=== PATIENT | female | born 1990 | race Caucasian/White ===

== ENCOUNTER 2016-10-12 22:54 | Emergency (ER) | payer MEDICAID ==
[2016-10-12 23:24] LABS: URINE APPEARANCE CLEAR; URINE BILIRUBIN NEGATIVE (NEGATIVE); URINE BLOOD LARGE (NEGATIVE); URINE COLOR ORANGE; URINE GLUCOSE (UA) NEGATIVE (NEGATIVE); URINE KETONE NEGATIVE (NEGATIVE); URINE LEUKOCYTE ESTERASE MODERATE (NEGATIVE); URINE NITRITE POSITIVE (NEGATIVE)
--- NOTE | 2016-10-12 23:25 | Emergency Department Record ---
History of Present Illness - General Chief complaint: Flank Pain Stated complaint: RIGHT FLANK PAIN Time Seen by Provider: 10/12/16 23:07 Source: Patient Mode of Arrival: Ambulatory Limitations: No limitations - History of Present Illness Initial comments: The patient is here for flank pain for one day. She was recently at [facility] a week ago and was diagnosed with a UTI and given Cipro. The patient states she did not finish it and now feels like her flank pain is worsening. She denies any dysuria but is having urinary pressure. There is no reported fever, chills, nausea, vomiting, or diarrhea. The patient has no hx of kidney stones. MD Complaint: Dysuria, Other (Flank pain.) Onset/Timin -: Days(s) Radiation: R flank Severity: Severe Severity scale (1-10): 9 Quality: Stabbing Consistency: Constant, Getting worse Improves with: None Worsens with: None Patient : No Associated Symptoms: Dysuria - Related Data Sexually active: No Home Medications Medication Instructions Recorded Confirmed Last Taken Ciprofloxacin HCl [Cipro] 250 mg PO DAILY 10/12/16 10/12/16 Unknown Phenazopyridine HCl 200 mg PO Q8H PRN 10/12/16 10/12/16 10/12/16 [Phenazopyridine HCl] Previous Rx's Medication Instructions Recorded Ciprofloxacin HCl [Cipro] 500 mg PO Q12HR #14 tablet 10/13/16 Naproxen [Naprosyn] 250 mg PO BID #14 tablet 10/13/16 Allergies Allergy/AdvReac Type Severity Reaction Status Date / Time Latex, Natural Rubber AdvReac RASH Verified 05/29/15 09:45 medroxyprogesterone acetate AdvReac ANEMIA Verified 05/29/15 09:45 [From Depo-Provera] Travel Screening - Travel/Exposure Within Last 30 Days Have you traveled within the last 30 days?: No Review of Systems Constitutional: Denies: Chills, Fever Eyes: Denies: Eye discharge ENT: Denies: Congestion Respiratory: Denies: Cough, Dyspnea Past Medical History - SOCIAL HISTORY Smoking Status: Never smoker Alcohol Use: None Drug Use: None - RESPIRATORY Hx Respiratory Disorders: No - CARDIOVASCULAR Hx Cardio Disorders: Yes Comment:: murmur - NEURO Hx Neuro Disorders: No - GI Hx GI Disorders: No - Hx Genitourinary Disorders: No - ENDOCRINE Hx Endocrine Disorders: No - MUSCULOSKELETAL Hx Musculoskeletal Disorders: No Comment:: hip displagia - PSYCH Hx Psych Problems: Yes Hx Anxiety: Yes Hx Depression: Yes Comment:: ADHD - HEMATOLOGY/ONCOLOGY Hx Hematology/Oncology Disorders: Yes Hx Anemia: Yes Family Medical History Any Significant Family History?: Yes Hx Anxiety: Mother, Brother/Sister Hx Cancer: Grandparents Hx Diabetes: Mother, Brother/Sister, Grandparents Hx Heart Disease: Grandparents Hx HTN: Grandparents Hx Resp Disorders: Brother/Sister Hx Seizures: Grandparents Physical Exam - General General Appearance: Alert, Cooperative, No acute distress - Head Head exam: Atraumatic, Normocephalic, Normal inspection - Eye Eye exam: Normal appearance, PERRL - Neck Neck exam: Normal inspection, Full ROM. negative: Tenderness - Respiratory Respiratory exam: Normal lung sounds bilaterally. negative: Respiratory distress - Cardiovascular Cardiovascular Exam: Regular rate, Normal rhythm, Normal heart sounds - GI/Abdominal GI/Abdominal exam: Soft, Normal bowel sounds. negative: Distended, Rebound, Rigid, Tenderness - Back Back exam: Reports: Normal inspection, Paraspinal tenderness (The pain is 100% reproducible with palpation of the R upper lumbar paraspinal area.). Denies: Muscle spasm, Vertebral tenderness - Neurological Neurological exam: Alert, Normal gait. negative: Abnormal gait, Motor sensory deficit Course Vital Signs 10/12/16 23:12 Temperature 98.1 F Pulse Rate [ 74 Pulse Ox Probe] Respiratory 16 Rate Blood Pressure 106/73 [Left Arm] Pulse Ox 98 - Reevaluation(s) Reevaluation #1: The patient is doing very well at this time. She denies any nausea, vomiting, or abdominal pain. She states her R flank pain is much improved. I did discuss the lab and CT results with the patient. She clearly has a urinary tract infection and possibly even a mild pyelonephritis. I do believe the patient is able to go home on oral Abx's due to the fact she has no fever, vomiting, or dehydration and her pain is controlled. We will discharge the patient on Cipro 500 BID and have her F/U with her PCP early next week. 10/13/16 00:12 10/13/16 00:21 Reevaluation #2: The patient urine culture was reviewed from last week at [facility]. She did have E Coli in her urine and it was sensitive to Rocephin and Cipro. 10/13/16 00:18 Medical Decision Making - Data Complexity MDM Data: Labs Ordered and/or Reviewed, X-Ray Ordered and/or Reviewed - Lab Data Result diagrams: 10/12/16 23:30 10/12/16 23:30 - Radiology Data Radiology results: Report reviewed (CT: Neg for stones or hydro.) Disposition Disposition: Discharge Clinical Impression: Pyelonephritis Disposition: Home, Self-Care Condition: (1) Good Instructions: Kidney Infection (ED) Additional Instructions: Please drink plenty of fluids and continue the Cipro tomorrow and use Naprosyn for pain. Please see your PCP for recheck early next week. Return to the ER for any increasing pain, fever, vomiting or dehydration. Prescriptions: Ciprofloxacin HCl [Cipro] 500 mg PO Q12HR #14 tablet Naproxen [Naprosyn] 250 mg PO BID #14 tablet Forms: Patient Portal Access Time of Disposition: 00:16 Quality - Quality Measures Quality Measures: N/A - Blood Pressure Screening View Details: Yes Does Patient Have Any of the Following: No Blood Pressure Classification: Normal BP Reading Systolic Measurement: 112 Diastolic Measurement: 68 Screening for High Blood Pressure: < Normal BP, F/U Not Required > [G8783] Pre-Hypertensive Follow-up Interventions: Referral to alternative/primary care provider.
[2016-10-12 23:30] LABS: HCG,QUALITATIVE URINE NEGATIVE (NEGATIVE); URINE BACTERIA 2+; URINE MUCUS MODERATE; URINE WBC >50 (0-2/hpf)
[2016-10-12 23:36] LABS: BASO % 0.4 % (0-6); EOS % 2.2 % (0-6); GRAN % 72.3 % (47-80); HEMATOCRIT 31.9 % (35.0-47.0); HEMOGLOBIN 10.7 gm/dl (11.6-16.0); LYMPH % 20.4 % (16-45); MEAN CELL VOLUME 90.1 fl (81-97); MEAN CORPUSCULAR HEMOGLOBIN 30.2 pg (27-33); MEAN CORPUSCULAR HGB CONC 33.5 g/dl (32-36); MEAN PLATELET VOLUME 10.9 fl (7.4-10.4); MONO % 4.7 % (0-9); PLATELET COUNT 340 K/uL (130-400); RED BLOOD COUNT 3.54 M/uL (3.80-5.40); RED CELL DISTRIBUTION WIDTH 12.4 % (11.5-14.5); WHITE BLOOD COUNT W/O DIFF 13.6 K/uL (4.2-12.2)
[2016-10-12] MEDS: CEFTRIAXONE SODIUM 1 GM in 0.9 % SODIUM CHLORIDE 100ML 100 ML IVPB ONE (23:41)
[2016-10-12] MEDS: KETOROLAC 30 MG/ML VIAL IVP ONE (23:41)
[2016-10-12] MEDS: 0.9 % SODIUM CHLORIDE 1,000 ML BAG IV ONE (23:41)
[2016-10-12 23:48] LABS: ANION GAP 8.9 (7-16); BLOOD UREA NITROGEN 10 mg/dL (7-17); CARBON DIOXIDE 25.1 mmol/L (22-30); CREATININE 0.7 mg/dL (0.52-1.04); EST GLOMERULAR FILTRATION RATE > 60 ml/min; GLUCOSE,RANDOM 97 mg/dL (70-110)
[2016-10-13] MEDS: CIPROFLOXACIN HCL 500 MG TABLET PO ONE (00:24)
--- NOTE | 2016-10-15 07:41 | CT SCAN REPORT ---
EXAM: CT OF THE ABDOMEN AND PELVIS WITHOUT CONTRAST HISTORY: RIGHT SIDED FLANK PAIN. TECHNIQUE: CT of the abdomen and pelvis was performed without oral or IV contrast. This limits evaluation of bowel and solid visceral organs. Comparison: Prior CT from 05/29/15. FINDINGS: Limited evaluation of the lung bases is unremarkable. The osseous structures are grossly intact. Limited evaluation of the liver, spleen, adrenal glands, pancreas, and kidneys is unremarkable. Negative for urinary tract calculus or hydronephrosis. The gallbladder is present. No gross evidence for bowel obstruction. Normal appendix. Large amount of stool in the colon. Subjective urinary bladder wall thickening may relate to incomplete distention. No free air or free fluid. IMPRESSION: 1. ABUNDANT STOOL IN THE COLON. NORMAL APPENDIX. NEGATIVE FOR URINARY TRACT CALCULUS. 2. SUBJECTIVE URINARY BLADDER WALL THICKENING MAY IN PART RELATE TO INCOMPLETE DISTENTION. NONSPECIFIC CYSTITIS NOT EXCLUDED. JOB NUMBER: [id number] MTDD
== END 2016-10-13 00:28 | disposition home or self-care (01) ==
LOC: ER 22:54
DX: N10 Acute pyelonephritis (principal); R30.0 Dysuria
CPT/HCPCS: 99284 ×2; 96374; 96375; 85025; 80048; 81001; 81025; 74176; J1885; J7030

== ENCOUNTER 2016-12-02 03:27 | Emergency (ER) | payer MEDICAID ==
[2016-12-02] MEDS ORDERED: IBUPROFEN 600 MG TABLET PO ONE (03:42)
--- NOTE | 2016-12-02 03:48 | Emergency Department Record ---
History of Present Illness - General Chief Complaint: Headache Migraine Stated Complaint: HEADACHE Time Seen by Provider: 12/02/16 03:34 Source: Patient Mode of Arrival: Ambulatory Limitations: No limitations - History of Present Illness Initial Comments: 26 yo female presents to ED with a CC of right sided neck pain that began 2 hours ago while at work. Patient denies injury to the neck, denies numbness, tingling, or extremity weakness. Patient also reports that she did not take anything for her pain symptoms before coming to the ED for evaluation. Patient denies health problems other than chiari-malformation. MD Complaint: Other (neck pain) Onset/Timin -: Hour(s) Onset Description: Gradual Location: Right Severity: Moderate Severity scale (1-10): 6 Consistency: Constant Improves With: Nothing Worsens With: Movement of head/neck Associated Symptoms: Other Other Symptoms: Other Treatments Prior to Arrival: None - Related Data Previous Rx's Medication Instructions Recorded Ciprofloxacin HCl [Cipro] 500 mg PO Q12HR #14 tablet 10/13/16 Naproxen [Naprosyn] 250 mg PO BID #14 tablet 10/13/16 Allergies Allergy/AdvReac Type Severity Reaction Status Date / Time Sulfa (Sulfonamide Allergy HIVES Verified 12/02/16 03:37 Antibiotics) Latex, Natural Rubber AdvReac RASH Verified 05/29/15 09:45 medroxyprogesterone acetate AdvReac ANEMIA Verified 05/29/15 09:45 [From Depo-Provera] control AdvReac don't work Uncoded 12/02/16 03:38 Travel Screening - Travel/Exposure Within Last 30 Days Have you traveled within the last 30 days?: No - Travel/Exposure Within Last Year Have you traveled outside the [place] in the last year?: No - Additonal Travel Details Have you been exposed to anyone with a communicable illness?: No - Travel Symptoms Symptom Screening: None Review of Systems Constitutional: Denies: Chills, Fever, Malaise, Night sweats Eyes: Denies: Eye discharge, Eye pain ENT: Denies: Congestion, Ear pain, Epistaxis Respiratory: Denies: Cough, Dyspnea Cardiovascular: Denies: Chest pain, Dyspnea on exertion Endocrine: Denies: Fatigue, Heat or cold intolerance Gastrointestinal: Denies: Abdominal pain, Nausea, Vomiting Genitourinary: Denies: Incontinence, Retention Musculoskeletal: Reports: Neck pain. Denies: Arthralgia, Back pain, Gout, Joint swelling Skin: Denies: Bruising, Change in color Neurological: Reports: Headache. Denies: Abnormal gait, Confusion, Seizure Psychiatric: Denies: Anxiety Hematological/Lymphatic: Denies: Anemia, Blood Clots Past Medical History - SOCIAL HISTORY Smoking Status: Never smoker Alcohol Use: Occasional Drug Use: None - RESPIRATORY Hx Respiratory Disorders: No - CARDIOVASCULAR Hx Cardio Disorders: Yes Comment:: murmur - NEURO Hx Neuro Disorders: No - GI Hx GI Disorders: No - Hx Genitourinary Disorders: No - ENDOCRINE Hx Endocrine Disorders: No - MUSCULOSKELETAL Hx Musculoskeletal Disorders: No Comment:: hip displagia - PSYCH Hx Psych Problems: Yes Hx Anxiety: Yes Hx Depression: Yes Comment:: ADHD - HEMATOLOGY/ONCOLOGY Hx Hematology/Oncology Disorders: Yes Hx Anemia: Yes Family Medical History Any Significant Family History?: Yes Hx Anxiety: Mother, Brother/Sister Hx Cancer: Grandparents Hx Diabetes: Mother, Brother/Sister, Grandparents Hx Heart Disease: Grandparents Hx HTN: Grandparents Hx Resp Disorders: Brother/Sister Hx Seizures: Grandparents Physical Exam - General General Appearance: Alert, Oriented x3, Cooperative, No acute distress Limitations: No limitations - Head Head exam: Atraumatic, Normocephalic, Normal inspection Head exam detail: negative: Abrasion, Contusion, Ty's sign, General tenderness, Hematoma, Laceration - Eye Eye exam: Normal appearance. negative: Conjunctival injection, Periorbital swelling, Periorbital tenderness, Scleral icterus - ENT Ear exam: negative: Auricular hematoma, Auricular trauma Nasal Exam: negative: Active bleeding, Discharge, Dried blood, Foreign body Mouth exam: negative: Drooling, Laceration, Muffled voice, Tongue elevation - Neck Neck exam: Full ROM, Tenderness (MIld TTP along the right paracervical muslces, FROM without stiffness or spasm noted on examination.). negative: Meningismus - Respiratory Respiratory exam: Normal lung sounds bilaterally. negative: Rales, Respiratory distress, Rhonchi, Stridor - Cardiovascular Cardiovascular Exam: Regular rate, Normal rhythm, Normal heart sounds - GI/Abdominal GI/Abdominal exam: Soft. negative: Rebound, Rigid, Tenderness - Rectal Rectal exam: Deferred - exam: Deferred - Extremities Extremities exam: Normal inspection. negative: Calf tenderness, Pedal edema, Tenderness - Back Back exam: Denies: CVA tenderness (R), CVA tenderness (L) - Neurological Neurological exam: Alert, Normal gait, Oriented X3 - Psychiatric Psychiatric exam: Normal affect, Normal mood - Skin Skin exam: Normal color. negative: Abrasion Type of lesion: negative: abrasion Course Vital Signs 12/02/16 03:33 Temperature 98.2 F Pulse Rate [ 82 Pulse Ox Probe] Respiratory 16 Rate Blood Pressure 115/73 [Left Arm] Pulse Ox 100 - Reevaluation(s) Reevaluation #1: 12/02/16 03:46 Patient denies injury, fever, or neck stiffness symptoms. Patient has FROM on examination, and no meningeal signs. Will treat with Ibuprofen for her neck pain symptoms, and the patient appears stable for discharge at this time. VA: right left Disposition Disposition: Discharge Clinical Impression: Cervical muscle strain Qualifiers: Encounter type: initial encounter Qualified Code(s): S16.1XXA - Strain of muscle, fascia and tendon at neck level, initial encounter Disposition: Home, Self-Care Condition: (2) Stable Instructions: Cervical Strain (ED) Additional Instructions: Return to ED if your symptoms worsen or if you have any concerns. Ibuprofen as directed. Follow-up with your family doctor in 3-5 days as directed. Forms: Patient Portal Access Time of Disposition: 03:49 Quality - Quality Measures Quality Measures: N/A - Blood Pressure Screening Does Patient Have Any of the Following: No Blood Pressure Classification: Normal BP Reading Systolic Measurement: 115 Diastolic Measurement: 73 Screening for High Blood Pressure: < Normal BP, F/U Not Required > [G8783]
== END 2016-12-02 03:57 | disposition home or self-care (01) ==
LOC: ER 03:27
DX: S16.1XXA Strain of muscle, fascia and tendon at neck level, initial encounter (principal); X58.XXXA Exposure to other specified factors, initial encounter; Y92.63 Factory as the place of occurrence of the external cause; Y99.0 Civilian activity done for income or pay
CPT/HCPCS: 99282

== ENCOUNTER 2017-11-28 20:13 | Emergency (ER) | payer MEDICAID ==
--- NOTE | 2017-11-28 20:35 | Emergency Department Record ---
History of Present Illness - General Chief complaint: Pain Stated complaint: INJURY TO RT WRIST Time Seen by Provider: 11/28/17 20:29 Source: Patient Mode of Arrival: Ambulatory Limitations: No limitations - History of Present Illness Initial comments: 27 yo female presents to ED for evaluation of right wrist pain that occurred after playing volleyball 2 days ago. Patient reports pain with movement and bruising of the wrist and forearm. Patient denies other injury on examination, and denies pain with movement of the elbow/shoulder. MD Complaint: Extremity pain Onset/Timin -: Days(s) Location: Right, Arm, Hand Severity scale (1-10): 6 Quality: Burning Consistency: Constant Improves with: Nothing Worsens with: Exertion - Related Data Home Medications Medication Instructions Recorded Confirmed Last Taken Otc Mood Stabilizer 1 tab PO DAILY 11/28/17 Unknown Allergies Allergy/AdvReac Type Severity Reaction Status Date / Time Sulfa (Sulfonamide Allergy HIVES Verified 12/02/16 03:37 Antibiotics) Latex, Natural Rubber AdvReac RASH Verified 05/29/15 09:45 medroxyprogesterone acetate AdvReac ANEMIA Verified 05/29/15 09:45 [From Depo-Provera] control AdvReac don't work Uncoded 12/02/16 03:38 Travel Screening - Travel/Exposure Within Last 30 Days Have you traveled within the last 30 days?: No - Travel Symptoms Symptom Screening: None Review of Systems Constitutional: Denies: Chills, Fever, Malaise, Night sweats Eyes: Denies: Eye discharge, Eye pain ENT: Denies: Congestion, Ear pain Respiratory: Denies: Cough, Dyspnea Cardiovascular: Denies: Chest pain, Dyspnea on exertion Endocrine: Denies: Fatigue, Heat or cold intolerance Gastrointestinal: Denies: Abdominal pain, Nausea, Vomiting Genitourinary: Denies: Incontinence, Retention Musculoskeletal: Reports: Myalgia. Denies: Arthralgia, Back pain Skin: Reports: Bruising. Denies: Change in color Neurological: Denies: Abnormal gait, Confusion, Headache, Seizure Psychiatric: Denies: Anxiety Hematological/Lymphatic: Denies: Anemia, Blood Clots Past Medical History - SOCIAL HISTORY Smoking Status: Never smoker - RESPIRATORY Hx Respiratory Disorders: No - CARDIOVASCULAR Hx Cardio Disorders: Yes Comment:: murmur - NEURO Hx Neuro Disorders: No Comment:: chiari malformation - GI Hx GI Disorders: No - Hx Genitourinary Disorders: No - ENDOCRINE Hx Endocrine Disorders: No - MUSCULOSKELETAL Hx Musculoskeletal Disorders: No Comment:: hip displagia - PSYCH Hx Psych Problems: Yes Hx Anxiety: Yes Hx Depression: Yes Comment:: ADHD - HEMATOLOGY/ONCOLOGY Hx Hematology/Oncology Disorders: Yes Hx Anemia: Yes Family Medical History Any Significant Family History?: Yes Hx Anxiety: Mother, Brother/Sister Hx Cancer: Grandparents Hx Diabetes: Mother, Brother/Sister, Grandparents Hx Heart Disease: Grandparents Hx HTN: Grandparents Hx Resp Disorders: Brother/Sister Hx Seizures: Grandparents Physical Exam - General General Appearance: Alert, Oriented x3, Cooperative, Mild distress Limitations: No limitations - Head Head exam: Atraumatic, Normocephalic, Normal inspection Head exam detail: negative: Abrasion, Contusion, Ty's sign, General tenderness, Hematoma, Laceration - Eye Eye exam: Normal appearance. negative: Conjunctival injection, Periorbital swelling, Periorbital tenderness, Scleral icterus - ENT Ear exam: negative: Auricular hematoma, Auricular trauma Nasal Exam: negative: Active bleeding, Discharge, Dried blood, Foreign body Mouth exam: negative: Drooling, Laceration, Tongue elevation - Neck Neck exam: Normal inspection. negative: Meningismus, Tenderness - Respiratory Respiratory exam: Normal lung sounds bilaterally. negative: Rales, Respiratory distress, Rhonchi, Stridor - Cardiovascular Cardiovascular Exam: Regular rate, Normal rhythm, Normal heart sounds Peripheral Pulses: 3+: Radial (R) - GI/Abdominal GI/Abdominal exam: Soft. negative: Rebound, Rigid, Tenderness - Rectal Rectal exam: Deferred - exam: Deferred - Extremities Extremities exam: Tenderness, Other (TTP to the volar aspect of the right wrist , mild ecchymosis present. Strong distal radial pulse, compartments of the forearm are soft on examination. FROM of the elbow, shoulder, fingers, and hand (though painful).). negative: Calf tenderness, Pedal edema - Back Back exam: Denies: CVA tenderness (R), CVA tenderness (L) - Neurological Neurological exam: Alert, Normal gait, Oriented X3 - Psychiatric Psychiatric exam: Normal affect, Normal mood - Skin Skin exam: Normal color. negative: Abrasion Type of lesion: negative: abrasion Course Vital Signs 11/28/17 20:20 Temperature 97.9 F Pulse Rate [ 76 Pulse Ox Probe] Respiratory 20 Rate Blood Pressure 119/84 [Left Arm] Pulse Ox 97 - Reevaluation(s) Reevaluation #1: 11/28/17 21:19 Right wrist: Possible distal ulna subluxation Patient was updated on all results, patient denies pain at the elbow. Case was then discussed with Dr. Calderon, will place in wrist splint with instructions to follow-up with Dr. Calderon in the [facility] Specialty clinic. Disposition Disposition: Discharge Clinical Impression: Subluxation of distal end of ulna Qualifiers: Encounter type: initial encounter Laterality: right Qualified Code(s): S63.071A - Subluxation of distal end of right ulna, initial encounter Disposition: Home, Self-Care Condition: (2) Stable Instructions: Contusion in Adults (ED) Additional Instructions: Return to ED if your symptoms worsen or if you have any concerns. Ice, Ibuprofen as directed. Follow-up with Dr. Calderon in the [facility] Spec[facility] next week. Referrals: GIORGIO CALDERON [DOCTOR OF OSTEOPATH] - [facility] Specialty Clinics [Provider Group] Forms: Patient Portal Access Time of Disposition: 20:34 Quality - Quality Measures Quality Measures: N/A - Blood Pressure Screening Does Patient Have Any of the Following: No Blood Pressure Classification: Pre-Hypertensive BP Reading Systolic Measurement: 119 Diastolic Measurement: 84 Screening for High Blood Pressure: < Pre-Hypertensive BP, F/U Documented > [ G8950] Pre-Hypertensive Follow-up Interventions: Referral to alternative/primary care provider.
--- NOTE | 2017-11-29 12:27 | RADIOLOGY REPORT ---
EXAM: RIGHT WRIST HISTORY: RIGHT WRIST INJURY. TECHNIQUE: AP, oblique, lateral and navicular views of the right wrist were obtained. Comparison: None. FINDINGS: There appears to be widening of the distal radial ulnar joints. No other bone or joint abnormality is identified. IMPRESSION: WIDENING OF THE DISTAL RADIAL ULNAR JOINT SUGGESTING SUBLUXATION. THIS COULD BE FURTHER ASSESSED WITH RADIOGRAPHS OF THE BILATERAL WRISTS TO ASSESS FOR SYMMETRY. ADDENDUM: Comparison is made to outside hospital right wrist radiographs from [facility]. The widening of the distal radial ulnar joint is symmetric bilaterally. The differential includes normal variation versus injury in both of the distal radial ulnar joints. JOB NUMBER: [id number] AND [id number] [facility]
== END 2017-11-28 21:29 | disposition home or self-care (01) ==
LOC: ER 20:13
DX: S63.071A Subluxation of distal end of right ulna, initial encounter (principal); W21.06XA Struck by volleyball, initial encounter; Y93.68 Activity, volleyball (beach) (court)
CPT/HCPCS: 99283

== ENCOUNTER 2017-12-03 14:45 | Emergency (ER) | payer MEDICAID ==
--- NOTE | 2017-12-03 15:42 | Emergency Department Record ---
History of Present Illness - General Chief complaint: Extremity Problem Stated complaint: RT HAND AND HAND NUMBNESS Time Seen by Provider: 12/03/17 15:10 Source: Patient Mode of Arrival: Ambulatory Limitations: No limitations - History of Present Illness Initial comments: pt injured both her wrists playing volleyball. she went to [facility] for the left and was told she had an ulnar styloid fx. she then came here for the right and was told she had a possible subluxation. she was given no f/u at [facility] and was told to f/u w dr edwards for her r hand. dr edwards said there is nothing to be done. pt now c/o numbnes around the lateral area of her r wrist and thumb Onset/Timin -: Days(s) Location: Right, Hand History of Same: No Improves with: Nothing Worsens with: Nothing Associated Symptoms: Denies other symptoms - Related Data Allergies Allergy/AdvReac Type Severity Reaction Status Date / Time Sulfa (Sulfonamide Allergy HIVES Verified 12/03/17 14:57 Antibiotics) Latex, Natural Rubber AdvReac RASH Verified 12/03/17 14:57 medroxyprogesterone acetate AdvReac ANEMIA Verified 12/03/17 14:57 [From Depo-Provera] control AdvReac don't work Uncoded 12/02/16 03:38 Travel Screening - Travel/Exposure Within Last 30 Days Have you traveled within the last 30 days?: No Past Medical History - SOCIAL HISTORY Smoking Status: Never smoker Alcohol Use: None Drug Use: None - RESPIRATORY Hx Respiratory Disorders: No - CARDIOVASCULAR Hx Cardio Disorders: Yes Comment:: murmur - NEURO Hx Neuro Disorders: No Comment:: chiari malformation - GI Hx GI Disorders: No - Hx Genitourinary Disorders: No - ENDOCRINE Hx Endocrine Disorders: No - MUSCULOSKELETAL Hx Musculoskeletal Disorders: No Comment:: hip displagia - PSYCH Hx Psych Problems: Yes Hx Anxiety: Yes Hx Depression: Yes Comment:: ADHD - HEMATOLOGY/ONCOLOGY Hx Hematology/Oncology Disorders: Yes Hx Anemia: Yes Family Medical History Any Significant Family History?: Yes Hx Anxiety: Mother, Brother/Sister Hx Cancer: Grandparents Hx Diabetes: Mother, Brother/Sister, Grandparents Hx Heart Disease: Grandparents Hx HTN: Grandparents Hx Resp Disorders: Brother/Sister Hx Seizures: Grandparents Course Vital Signs 12/03/17 14:54 Temperature 97.8 F Pulse Rate 80 Respiratory 20 Rate Blood Pressure 103/76 Pulse Ox 100 - Reevaluation(s) Reevaluation #1: 12/03/17 17:52 case d/w dr edwards. ct done and is neg. dr edwards said have pt f/u with family doctor. Disposition Disposition: Discharge Clinical Impression: Numbness of right hand Contusion of wrist, right Qualifiers: Encounter type: initial encounter Qualified Code(s): S60.211A - Contusion of right wrist, initial encounter Disposition: Home, Self-Care Condition: (1) Good Instructions: Contusion in Adults (ED), Wrist Injury (ED) Additional Instructions: follow up with family doctor. return sooner if worse. wear splint when needed. motrin for pain with food Forms: Patient Portal Access, Return to Work/School Quality - Quality Measures Quality Measures: N/A - Blood Pressure Screening Does Patient Have Any of the Following: No Blood Pressure Classification: Normal BP Reading Systolic Measurement: 103 Diastolic Measurement: 76 Screening for High Blood Pressure: < Normal BP, F/U Not Required > [G8783]
--- NOTE | 2017-12-05 10:34 | CT SCAN REPORT ---
EXAM: EMERGENCY CT OF THE RIGHT WRIST WITHOUT CONTRAST WITH POST PROCESSING HISTORY: INJURY, POSSIBLE RIGHT WRIST FRACTURE, NUMBNESS IN THUMB. INJURY ONE WEEK AGO. TECHNIQUE: Axial CT scan of the right wrist was performed without IV contrast. Post processing on an independent workstation was performed with 3D volume rendered as well as multiplanar 2D reformatted series obtained. Comparison: Plain film series dated 11/28/17. No prior CT of the wrist. Encounter: Subsequent. FINDINGS: No definite fracture or dislocation of the wrist identified. Compared with MRI, CT is not particularly sensitive for evaluation of the soft tissues and if the patient's symptoms persist, follow-up MRI of the wrist may be useful for further evaluation. IMPRESSION: NO DEFINITE FRACTURE OR DISLOCATION OF THE RIGHT WRIST IDENTIFIED. JOB NUMBER: [id number] MTDD
== END 2017-12-03 18:01 | disposition home or self-care (01) ==
LOC: ER 14:45
DX: S60.211A Contusion of right wrist, initial encounter (principal); R20.0 Anesthesia of skin; X58.XXXA Exposure to other specified factors, initial encounter; Y93.68 Activity, volleyball (beach) (court)
CPT/HCPCS: 99283

== ENCOUNTER 2018-02-13 14:13 | Emergency (ER) | payer MEDICAID ==
[2018-02-13] MEDS ORDERED: ONDANSETRON HCL IV 4 MG/2 ML VIAL IV ONE (14:37)
[2018-02-13] MEDS ORDERED: MAGNESIUM HYDROXIDE/AL HYDROX 30 ML, LIDOCAINE VISC 2% 15ML 15 ML PO ONE ×2 (14:37)
[2018-02-13] MEDS ORDERED: 0.9 % SODIUM CHLORIDE 1,000 ML BAG IV ONE (14:37)
--- NOTE | 2018-02-13 14:52 | Emergency Department Record ---
History of Present Illness - General Chief Complaint: Abdominal Pain Stated Complaint: ABD PAIN,NAUSEA AND BACK PAIN Time Seen by Provider: 02/13/18 14:30 Source: Patient Mode of Arrival: Ambulatory Limitations: No limitations - History of Present Illness Initial Comments: The patient is here due to a 2-3 day hx of upper AP. The pain is sharp and stabbing and mainly in the RUQ. It intermittently radiates to the back. She has had nausea, vomiting, and diarrhea with it. Eating and drinking does seem to make the symptoms worse. She has been evaluated at [facility] yesterday for it and was told she had an inflamed intestine. Since leaving the ER there her symptoms have not improved. She has no hx of any abdominal surgeries other than a BTL. The patient denies any lower AP, vaginal discharge, bleeding or dysuria. MD Complaint: Abdominal pain Onset/Timin -: Days(s) Location: RUQ Improves With: Nothing Worsens With: Nothing Associated Symptoms: Diarrhea, Fever - Related Data LMP (females 10-50): Current Home Medications Medication Instructions Recorded Confirmed Last Taken Dicyclomine HCl [Bentyl] 10 mg PO Q8H 02/13/18 02/13/18 02/13/18 Ondansetron [Zofran Odt] 4 mg PO Q8H 02/13/18 02/13/18 02/13/18 Previous Rx's Medication Instructions Recorded Sucralfate [Carafate] 1 gm PO QID #28 tablet 02/13/18 Allergies Allergy/AdvReac Type Severity Reaction Status Date / Time Sulfa (Sulfonamide Allergy HIVES Verified 02/13/18 14:26 Antibiotics) Latex, Natural Rubber AdvReac RASH Verified 02/13/18 14:26 medroxyprogesterone acetate AdvReac ANEMIA Verified 02/13/18 14:26 [From Depo-Provera] control AdvReac don't work Uncoded 12/02/16 03:38 Travel Screening - Travel/Exposure Within Last 30 Days Have you traveled within the last 30 days?: No Review of Systems Constitutional: Denies: Chills, Fever Eyes: Denies: Eye discharge ENT: Denies: Congestion Respiratory: Denies: Cough, Dyspnea Past Medical History - SOCIAL HISTORY Smoking Status: Never smoker Alcohol Use: None Drug Use: None - RESPIRATORY Hx Respiratory Disorders: No - CARDIOVASCULAR Hx Cardio Disorders: Yes Comment:: murmur - NEURO Hx Neuro Disorders: No Comment:: chiari malformation - GI Hx GI Disorders: No - Hx Genitourinary Disorders: No - ENDOCRINE Hx Endocrine Disorders: No - MUSCULOSKELETAL Hx Musculoskeletal Disorders: No Comment:: hip displagia - PSYCH Hx Psych Problems: Yes Hx Anxiety: Yes Hx Depression: Yes Comment:: ADHD - HEMATOLOGY/ONCOLOGY Hx Hematology/Oncology Disorders: Yes Hx Anemia: Yes Family Medical History Any Significant Family History?: Yes Hx Anxiety: Mother, Brother/Sister Hx Cancer: Grandparents Hx Diabetes: Mother, Brother/Sister, Grandparents Hx Heart Disease: Grandparents Hx HTN: Grandparents Hx Resp Disorders: Brother/Sister Hx Seizures: Grandparents Physical Exam - General General Appearance: Alert, Oriented x3, Cooperative, No acute distress - Head Head exam: Atraumatic, Normocephalic, Normal inspection - Eye Eye exam: Normal appearance, PERRL - ENT Throat exam: Normal inspection. negative: Tonsillar erythema, Tonsillar exudate - Neck Neck exam: Normal inspection, Full ROM. negative: Tenderness - Respiratory Respiratory exam: Normal lung sounds bilaterally. negative: Respiratory distress - Cardiovascular Cardiovascular Exam: Regular rate, Normal rhythm, Normal heart sounds - GI/Abdominal GI/Abdominal exam: Soft, Tenderness (There is diffuse very mild epigastric and RUQ tenderness to palpation.). negative: Distended, Rebound, Rigid - Extremities Extremities exam: Normal inspection, Full ROM, Normal capillary refill. negative: Tenderness - Neurological Neurological exam: Alert. negative: Motor sensory deficit Course Vital Signs 02/13/18 14:22 Temperature 98.3 F Pulse Rate 85 Respiratory 20 Rate Blood Pressure 104/82 Pulse Ox 97 - Reevaluation(s) Reevaluation #1: I did review the patient's CT from yesterday and it did not demonstrate any acute abnormalities. The patient is feeling better at this time. 02/13/18 15:30 Reevaluation #2: The patient is doing better at this time. Her pain has resolved and she is resting comfortably. I did discuss the neg US with her and the need for F/U. 02/13/18 16:51 Medical Decision Making - Data Complexity MDM Data: Labs Ordered and/or Reviewed, X-Ray Ordered and/or Reviewed - Lab Data Result diagrams: 02/13/18 14:50 02/13/18 14:50 - Radiology Data Radiology results: Report reviewed (US: Neg for acute GB pathology. ) Disposition Disposition: Discharge Clinical Impression: Abdominal pain Qualifiers: Abdominal location: right upper quadrant Qualified Code(s): R10.11 - Right upper quadrant pain Disposition: Home, Self-Care Condition: (2) Stable Instructions: Abdominal Pain (ED) Additional Instructions: Please eat a very bland diet and only use Tylenol for pain. (No Motrin or Advil) . Please take the Carafate as directed and see your family doctor next week for recheck. Please also see Dr. Su in the Specialist clinic for possible further evaluation of your GB. Return to the ER for any worsening pain, or any fever, vomiting, or diarrhea. Prescriptions: Sucralfate [Carafate] 1 gm PO QID #28 tablet Referrals: [facility] [Provider Group] Forms: Patient Portal Access Time of Disposition: 16:55 Quality - Quality Measures Quality Measures: N/A - Blood Pressure Screening View Details: Yes Does Patient Have Any of the Following: No Blood Pressure Classification: Pre-Hypertensive BP Reading Systolic Measurement: 104 Diastolic Measurement: 82 Screening for High Blood Pressure: < Pre-Hypertensive BP, F/U Documented > [ G8950] Pre-Hypertensive Follow-up Interventions: Referral to alternative/primary care provider.
[2018-02-13 15:07] LABS: BASO % 0.6 % (0-6); EOS % 3.6 % (0-6); GRAN % 62.9 % (47-80); HEMATOCRIT 36.5 % (35.0-47.0); HEMOGLOBIN 11.8 gm/dl (11.6-16.0); LYMPH % 28.7 % (16-45); MEAN CELL VOLUME 92.4 fl (81-97); MEAN CORPUSCULAR HEMOGLOBIN 29.9 pg (27-33); MEAN CORPUSCULAR HGB CONC 32.3 g/dl (32-36); MEAN PLATELET VOLUME 10.9 fl (7.4-10.4); MONO % 4.2 % (0-9); PLATELET COUNT 322 K/uL (130-400); RED BLOOD COUNT 3.95 M/uL (3.80-5.40); RED CELL DISTRIBUTION WIDTH 13.3 % (11.5-14.5); WHITE BLOOD COUNT W/O DIFF 6.5 K/uL (4.2-12.2)
[2018-02-13 15:10] LABS: URINE APPEARANCE CLEAR; URINE BILIRUBIN NEGATIVE (NEGATIVE); URINE BLOOD SMALL (NEGATIVE); URINE COLOR YELLOW; URINE GLUCOSE (UA) NEGATIVE (NEGATIVE); URINE KETONE NEGATIVE (NEGATIVE); URINE LEUKOCYTE ESTERASE NEGATIVE (NEGATIVE); URINE NITRITE NEGATIVE (NEGATIVE); URINE PROTEIN NEGATIVE (NEGATIVE); URINE UROBILINOGEN 0.2 E.U./dL (0.20 - 1.00)
[2018-02-13 15:18] LABS: URINE EPITHELIAL CELLS 0 - 2 (FEW); URINE RBC 0 - 2 (NONE SEEN); URINE WBC NONE SEEN (0-2/hpf)
[2018-02-13 15:18] LABS: BLOOD UREA NITROGEN 6 mg/dL (6-20)
[2018-02-13 15:19] LABS: CREATININE 0.6 mg/dL (0.5-0.9); EST GLOMERULAR FILTRATION RATE > 60 mL/min; TOTAL PROTEIN 7.3 g/dL (6.6-8.7)
[2018-02-13 15:21] LABS: GLUCOSE,RANDOM 114 mg/dL (74-109)
[2018-02-13 15:24] LABS: ALBUMIN 4.1 g/dL (4.0-5.0); ALKALINE PHOSPHATASE 59 U/L (35-104); ALT/SGPT 31 U/L (<33); AST/SGOT 22 U/L (10.0-35.0); LIPASE 27 U/L (13-60)
[2018-02-13 15:27] LABS: BILIRUBIN,DIRECT < 0.2 mg/dL (0-0.3)
[2018-02-13] MEDS ORDERED: SUCRALFATE 1 G/10 ML UD PO ONE (16:10)
--- NOTE | 2018-02-14 08:59 | ULTRASOUND REPORT ---
DATE: 02/13/2018. EXAM: COMPLETE ABDOMINAL ULTRASOUND. HISTORY: RIGHT UPPER QUADRANT ABDOMINAL PAIN FOR ONE WEEK WITH NAUSEA, VOMITING , AND DIARRHEA. PROVIDED HISTORY REPORT IS A NEGATIVE CT EXAMINATION PERFORMED AT OUTSIDE HOSPITAL YESTERDAY. TECHNIQUE: Complete abdominal ultrasound. COMPARISON: CT of the abdomen and pelvis dated 10/12/2016. FINDINGS: The visualized portions of the pancreatic head and body appear within normal limits. The pancreatic tail is obscured by shadowing bowel gas. The visualized hepatic parenchyma appears within normal limits. Borderline diffuse gallbladder wall thickening measuring between 2.0 and 3.0 mm in thickness. The visualized gallbladder contents appear anechoic. No gallstones or pericholecystic fluid visualized. White [employer] Pan Tank Operator reports significant patient tenderness while examining the gallbladder. The common bile duct measures 3.0 mm which is within normal limits. The spleen appears unremarkable. The right kidney measures 10.8 cm in length. No hydronephrosis, shadowing calculus, or focal mass detected. The left kidney measures 9.2 cm in length. No hydronephrosis, shadowing calculus, or focal mass detected. The visualized portions of the abdominal aorta appear unremarkable. Unremarkable Grayscale appearance of the inferior vena cava at the level of the liver. No visible ascites. IMPRESSION: 1. NONSPECIFIC BORDERLINE GALLBLADDER WALL THICKENING. TECHNOLOGIST ALSO NOTES A POSITIVE SONOGRAPHIC RODRIGUEZ'S SIGN WHILE EXAMINING THE REGION OF THE GALLBLADDER. HOWEVER, NO GALLSTONES OR PERICHOLECYSTIC FLUID IS SEEN. IF THERE IS CONTINUED CONCERN FOR ACUTE CHOLECYSTITIS, FOLLOW-UP IMAGING WITH HEPATOBILIARY SCINTIGRAPHY MAY BE OF BENEFIT. 2. AN OTHERWISE UNREMARKABLE ABDOMINAL ULTRASOUND. JOB NUMBER: [id number] [facility]
== END 2018-02-13 17:06 | disposition home or self-care (01) ==
LOC: ER 14:13
DX: R10.11 Right upper quadrant pain (principal); R19.7 Diarrhea, unspecified; R11.2 Nausea with vomiting, unspecified
CPT/HCPCS: 99284 ×2; 96374; 96361; 83690; 85025; 80076; 80048; 81001; 84703; 76700; J2405; J7030

== ENCOUNTER 2018-02-24 07:25 | Day surgery (SDC) | payer MEDICAID ==
[~2018-02-24 07:25] MED LIST: ACETAMINOPHEN 1,000 MG/100 ML BTL IV ONE; FAMOTIDINE 20MG TABLET PO ONE; MECLIZINE 25 MG TABLET PO ONE; METOCLOPRAMIDE 10 MG TABLET PO ONE
[2018-02-24] MEDS ORDERED: FENTANYL PF 100MCG/2ML VIAL IV ONE ×2 (07:26)
[2018-02-24] MEDS ORDERED: ONDANSETRON HCL IV 4 MG/2 ML VIAL IVP ONE (07:26)
[2018-02-24] MEDS ORDERED: BUPIVACAINE 0.25% W/EPI MPF 30ML VIAL IVP ONE (07:26)
[2018-02-24] MEDS ORDERED: NALOXONE 0.4 MG/1 ML VIAL IV ONE (07:26)
[2018-02-24] MEDS ORDERED: SUCCINYLCHOLINE 20 MG/ML 10ML IVP ONE (07:26)
[2018-02-24] MEDS ORDERED: SUGAMMADEX SODIUM 200 MG/2 ML VIAL IV ONE (07:26)
[2018-02-24] MEDS ORDERED: DEXAMETHASONE 4 MG/ML 1ML VIAL IVP ONE (07:26)
[2018-02-24] MEDS ORDERED: PROPOFOL 10 MG/ML VIAL IV ONE (07:26)
[2018-02-24] MEDS ORDERED: HYDROCODONE/APAP 5/325MG TABLET PO ONE (07:26)
[2018-02-24] MEDS ORDERED: LIDOCAINE 2% MDV (20MG/ML) 20ML VIAL IV ONE (07:26)
[2018-02-24] MEDS ORDERED: ROCURONIUM BROMIDE 50MG/5ML VIAL IV ONE (07:26)
[2018-02-24] MEDS ORDERED: MIDAZOLAM HCL 2MG/2ML VIAL IV ONE (07:26)
[2018-02-24] MEDS ORDERED: SEVOFLURANE 250 ML INH ONE (07:26)
--- NOTE | 2018-02-25 11:10 | Operative Note ---
DATE OF SURGERY: 02/24/2018 Surgeon: Aman Su DO PREOPERATIVE DIAGNOSIS: Chronic cholecystitis. POSTOPERATIVE DIAGNOSIS: Chronic cholecystitis. OPERATION: Laparoscopic cholecystectomy. Indication: The patient is a 27-year-old female who is having ongoing right subcostal postprandial pain. She was seen in the clinic. Her history was consistent with chronic cholecystitis. We did discuss cholecystectomy versus medical management. She desired surgical intervention. Risks include but are not limited to bleeding, infection, ductal injury, possible conversion to open, postoperative bile leak. She understood this fully. PROCEDURE: Thereafter, consent was signed and questions answered. She was taken to the operating room and placed in a supine position. General anesthesia was administered per the department of anesthesia. The patient's abdomen was prepped and draped in the usual sterile fashion. The infraumbilical region was anesthetized with a total of 5 mL of 0.25% Sensorcaine with epinephrine. A 2 cm infraumbilical incision was made. This was carried down to the anterior rectus fascia. This was incised. Lucas clamps were placed on the fascial edges and brought up into the wound. Stay sutures of 0 Vicryl were placed. Posterior rectus sheath was identified and incised. The peritoneal cavity was entered bluntly. At this time, a 10 mm blunt Callie port was placed. Adequate pneumoperitoneum was established. Under direct visualization, additional 5 mm epigastric and two 5 mm right subcostal ports were placed. The patient was rotated into steep reverse Trendelenburg with rotation to left. The gallbladder was identified in the subhepatic space. It was retracted in a cephalad and lateral direction opening up the angle of Calot. The hepatocystic triangle was thoroughly dissected out. There was no aberrant anatomy, no posterior ductal structures. The cystic duct and cystic artery were clearly identified. The distal half of the gallbladder had been released from the liver as well. Each one was doubly clipped and cut in a standard fashion. Gallbladder was then taken off the liver bed with Charles harmonic. This was extracted through the umbilical port. Right upper quadrant was rechecked and found to be hemostatic. No bleeding. No bile leak. No bowel injury noted. The patient was leveled out. The pneumoperitoneum was released. All ports were removed. The fascia was closed with 0 Vicryl in a [id number] fashion. The skin at all ports was closed with 4-0 Vicryl. The patient was taken to the recovery room in satisfactory condition. FINDINGS AT THE TIME OF SURGERY: Chronic cholecystitis. CC: [facility]
== END 2018-02-24 11:37 | disposition home or self-care (01) ==
LOC: SUR 07:25
PROVIDERS: ATTEND Surgery
DX: K81.1 Chronic cholecystitis (principal); R01.1 Cardiac murmur, unspecified
CPT/HCPCS: 47562; 00790; J2405; J3010; J3490; J0330; J2310

== ENCOUNTER 2018-04-23 14:40 | Emergency (ER) | payer MEDICAID ==
--- NOTE | 2018-04-23 15:12 | Emergency Department Record ---
History of Present Illness - General Chief complaint: ENT Stated complaint: SORE THROAT,FEVER Time Seen by Provider: 04/23/18 14:59 Source: Patient, RN notes reviewed Mode of Arrival: Ambulatory - History of Present Illness Initial comments: sore throat and a fever and body aches complaint: Sore throat Onset/Timin -: Days(s) Location: Throat Severity: Moderate Severity scale (1-10): 7 Associated Symptoms: Sore throat - Related Data Previous Rx's Medication Instructions Recorded Oseltamivir Phosphate [Tamiflu] 75 mg PO BID #10 capsule 04/23/18 Allergies Allergy/AdvReac Type Severity Reaction Status Date / Time Sulfa (Sulfonamide Allergy HIVES Verified 04/23/18 14:51 Antibiotics) Latex, Natural Rubber AdvReac RASH Verified 04/23/18 14:51 medroxyprogesterone acetate AdvReac ANEMIA Verified 04/23/18 14:51 [From Depo-Provera] control AdvReac don't work Uncoded 12/02/16 03:38 Travel Screening - Travel/Exposure Within Last 30 Days Have you traveled within the last 30 days?: No - Travel/Exposure Within Last Year Have you traveled outside the [place] in the last year?: No - Additonal Travel Details Have you been exposed to anyone with a communicable illness?: No - Travel Symptoms Symptom Screening: None Review of Systems Reviewed: No additional complaints except as noted below Constitutional: Reports: As per HPI. Denies: Chills, Fever, Malaise, Night sweats, Weakness, Weight change Eyes: Reports: As per HPI. Denies: Eye discharge, Eye pain, Photophobia, Vision change ENT: Reports: As per HPI. Denies: Congestion, Dental pain, Ear pain, Epistaxis , Hearing loss, Throat pain Respiratory: Reports: As per HPI. Denies: Cough, Dyspnea, Hemoptysis, Stridor, Wheezes Cardiovascular: Reports: As per HPI. Denies: Arrhythmia, Chest pain, Dyspnea on exertion, Edema, Murmurs, Orthopnea, Palpitations, Paroxysmal nocturnal dyspnea, Rheumatic Fever, Syncope Endocrine: Reports: As per HPI. Denies: Fatigue, Heat or cold intolerance, Polydipsia, Polyuria Gastrointestinal: Reports: As per HPI. Denies: Abdominal pain, Constipation, Diarrhea, Hematemesis, Hematochezia, Melena, Nausea, Vomiting Genitourinary: Reports: As per HPI. Denies: Abnormal menses, Discharge, Dyspareunia, Dysuria, Frequency, Hematuria, Incontinence, Retention, Urgency Musculoskeletal: Reports: As per HPI. Denies: Arthralgia, Back pain, Gout, Joint swelling, Myalgia, Neck pain Skin: Reports: As per HPI. Denies: Bruising, Change in color, Change in hair/ nails, Lesions, Pruritus, Rash Neurological: Reports: As per HPI. Denies: Abnormal gait, Confusion, Headache, Numbness, Paresthesias, Seizure, Tingling, Tremors, Vertigo, Weakness Psychiatric: Reports: As per HPI. Denies: Anxiety, Auditory hallucinations, Depression, Homicidal thoughts, Suicidal thoughts, Visual hallucinations Hematological/Lymphatic: Reports: As per HPI. Denies: Anemia, Blood Clots, Easy bleeding, Easy bruising, Swollen glands Past Medical History - SOCIAL HISTORY Smoking Status: Never smoker Alcohol Use: Rare Drug Use: None - RESPIRATORY Hx Respiratory Disorders: No - CARDIOVASCULAR Hx Cardio Disorders: Yes Comment:: murmur - NEURO Hx Neuro Disorders: No Comment:: chiari malformation - GI Hx GI Disorders: No - Hx Genitourinary Disorders: No - ENDOCRINE Hx Endocrine Disorders: No - MUSCULOSKELETAL Hx Musculoskeletal Disorders: No Comment:: hip displagia - PSYCH Hx Psych Problems: Yes Hx Anxiety: Yes - HEMATOLOGY/ONCOLOGY Hx Hematology/Oncology Disorders: Yes Hx Anemia: Yes Family Medical History Any Significant Family History?: Yes Hx Anxiety: Mother, Brother/Sister Hx Cancer: Grandparents Hx Diabetes: Mother, Brother/Sister, Grandparents Hx Heart Disease: Grandparents Hx HTN: Grandparents Hx Resp Disorders: Brother/Sister Hx Seizures: Grandparents Physical Exam - General General Appearance: Alert ([id number]), Oriented x3, Cooperative, No acute distress - Head Head exam: Normal inspection - Eye Eye exam: Normal appearance, PERRL Pupils: Normal accommodation - ENT ENT exam: Normal exam, Mucous membranes moist, Normal external ear exam, Normal orophraynx, TM's normal bilaterally Ear exam: Normal external inspection. negative: External canal tenderness Nasal Exam: Normal inspection. negative: Discharge, Sinus tenderness Mouth exam: Normal external inspection, Tongue normal Teeth exam: Normal inspection. negative: Dental caries Throat exam: Normal inspection. negative: Tonsillar erythema, Tonsillar exudate - Neck Neck exam: Normal inspection, Full ROM. negative: Tenderness - Respiratory Respiratory exam: Normal lung sounds bilaterally. negative: Respiratory distress - Cardiovascular Cardiovascular Exam: Regular rate, Normal rhythm, Normal heart sounds - GI/Abdominal GI/Abdominal exam: Soft, Normal bowel sounds. negative: Tenderness - Rectal Rectal exam: Deferred - exam: Deferred - Extremities Extremities exam: Normal inspection, Full ROM, Normal capillary refill. negative: Tenderness - Back Back exam: Reports: Normal inspection, Full ROM. Denies: Muscle spasm, Rash noted, Tenderness - Neurological Neurological exam: Alert, Normal gait, Oriented X3, Reflexes normal - Psychiatric Psychiatric exam: Normal affect, Normal mood - Skin Skin exam: Dry, Intact, Normal color, Warm Course Vital Signs 04/23/18 14:53 Temperature 101.1 F H Pulse Rate 111 H Respiratory 20 Rate Blood Pressure 107/73 Pulse Ox 99 Medical Decision Making - Data Complexity MDM Data: Labs Ordered and/or Reviewed (influenze a positive) Disposition Clinical Impression: Influenza A Disposition: Home, Self-Care Condition: (1) Good Instructions: Influenza (ED) Additional Instructions: fluids and rest Prescriptions: Oseltamivir Phosphate [Tamiflu] 75 mg PO BID #10 capsule Forms: Patient Portal Access Time of Disposition: 15:41 Quality - Quality Measures Quality Measures: N/A - Blood Pressure Screening Does Patient Have Any of the Following: No Blood Pressure Classification: Normal BP Reading Systolic Measurement: 107 Diastolic Measurement: 73 Screening for High Blood Pressure: < Normal BP, F/U Not Required > [G8783]
[2018-04-23 15:17] LABS: INFLUENZA A POSITIVE (NEGATIVE); INFLUENZA B NEGATIVE (NEGATIVE); STREP A SCREEN NEGATIVE (NEGATIVE)
[2018-04-23] MEDS ORDERED: ACETAMINOPHEN 500 MG TABLET PO ONE (15:25)
== END 2018-04-23 16:05 | disposition home or self-care (01) ==
LOC: ER 14:40
DX: J10.1 Influenza due to other identified influenza virus with other respiratory manifestations (principal)
CPT/HCPCS: 87400; 87880; 99282

== ENCOUNTER 2018-09-07 11:43 | Emergency (ER) | payer SELFPAY ==
[2018-09-07 13:08] LABS: ABSOLUTE NEUTROPHIL COUNT 3.87; BASO % 0.4 % (0-6); GRAN % 57.1 % (47-80); HEMATOCRIT 36.8 % (35.0-47.0); HEMOGLOBIN 12.1 gm/dl (11.6-16.0); LYMPH % 30.9 % (16-45); MEAN CORPUSCULAR HEMOGLOBIN 30.3 pg (27-33); MEAN CORPUSCULAR HGB CONC 32.9 g/dl (32-36); MEAN PLATELET VOLUME 11.1 fl (7.4-10.4); MONO % 6.6 % (0-9); PLATELET COUNT 272 K/uL (130-400); RED CELL DISTRIBUTION WIDTH 12.7 % (11.5-14.5); URINE APPEARANCE CLEAR; URINE BILIRUBIN NEGATIVE (NEGATIVE); URINE BLOOD MODERATE (NEGATIVE); URINE COLOR YELLOW; URINE GLUCOSE (UA) NEGATIVE (NEGATIVE); URINE KETONE NEGATIVE (NEGATIVE); URINE LEUKOCYTE ESTERASE NEGATIVE (NEGATIVE); URINE NITRITE NEGATIVE (NEGATIVE); URINE PROTEIN NEGATIVE (NEGATIVE); URINE UROBILINOGEN 0.2 E.U./dL (0.20 - 1.00); WHITE BLOOD COUNT W/O DIFF 6.8 K/uL (4.2-12.2)
[2018-09-07 13:14] LABS: URINE EPITHELIAL CELLS 0 - 2 (FEW); URINE WBC NONE SEEN (0-2/hpf)
[2018-09-07 13:15] LABS: HCG,QUALITATIVE URINE NEGATIVE (NEGATIVE)
--- NOTE | 2018-09-07 14:55 | Emergency Department Record ---
History of Present Illness - General Chief complaint: Female Urogenital Problem Stated complaint: VAGINAL BLEEDING Time Seen by Provider: 09/07/18 12:28 Source: Patient Mode of Arrival: Ambulatory Limitations: No limitations - History of Present Illness Initial comments: pt having heavy bleeding and cramping. she went through 6 tampons. it is time for her menses. Complaint: Vaginal bleeding Onset/Timin -: Days(s) Location: Suprapubic Severity: Moderate Quality: Sharp Consistency: Constant Patient : No Associated Symptoms: Vaginal bleeding - Related Data Home Medications Medication Instructions Recorded Confirmed Last Taken Buspirone HCl [Buspar] 10 mg PO DAILY 09/07/18 09/07/18 09/07/18 Allergies Allergy/AdvReac Type Severity Reaction Status Date / Time Sulfa (Sulfonamide Allergy HIVES Verified 09/07/18 11:54 Antibiotics) Latex, Natural Rubber AdvReac RASH Verified 09/07/18 11:54 medroxyprogesterone acetate AdvReac ANEMIA Verified 09/07/18 11:54 [From Depo-Provera] control AdvReac don't work Uncoded 12/02/16 03:38 Travel Screening - Travel/Exposure Within Last 30 Days Have you traveled within the last 30 days?: No - Travel/Exposure Within Last Year Have you traveled outside the [place] in the last year?: No - Additonal Travel Details Have you been exposed to anyone with a communicable illness?: No - Travel Symptoms Symptom Screening: None Review of Systems Reviewed: No additional complaints except as noted below Constitutional: Reports: As per HPI. Denies: Chills, Fever, Malaise, Night sweats, Weakness, Weight change Eyes: Reports: As per HPI. Denies: Eye discharge, Eye pain, Photophobia, Vision change ENT: Reports: As per HPI. Denies: Congestion, Dental pain, Ear pain, Epistaxis, Hearing loss, Throat pain Respiratory: Reports: As per HPI. Denies: Cough, Dyspnea, Hemoptysis, Stridor, Wheezes Cardiovascular: Reports: As per HPI. Denies: Arrhythmia, Chest pain, Dyspnea on exertion, Edema, Murmurs, Orthopnea, Palpitations, Paroxysmal nocturnal dyspnea, Rheumatic Fever, Syncope Endocrine: Reports: As per HPI. Denies: Fatigue, Heat or cold intolerance, Polydipsia, Polyuria Gastrointestinal: Reports: As per HPI. Denies: Abdominal pain, Constipation, Diarrhea, Hematemesis, Hematochezia, Melena, Nausea, Vomiting Genitourinary: Reports: As per HPI, Abnormal menses. Denies: Discharge, Dyspareunia, Dysuria, Frequency, Hematuria, Incontinence, Retention, Urgency Musculoskeletal: Reports: As per HPI. Denies: Arthralgia, Back pain, Gout, Joint swelling, Myalgia, Neck pain Skin: Reports: As per HPI. Denies: Bruising, Change in color, Change in hair/nails, Lesions, Pruritus, Rash Neurological: Reports: As per HPI. Denies: Abnormal gait, Confusion, Headache, Numbness, Paresthesias, Seizure, Tingling, Tremors, Vertigo, Weakness Psychiatric: Reports: As per HPI. Denies: Anxiety, Auditory hallucinations, Depression, Homicidal thoughts, Suicidal thoughts, Visual hallucinations Hematological/Lymphatic: Reports: As per HPI. Denies: Anemia, Blood Clots, Easy bleeding, Easy bruising, Swollen glands Past Medical History - SOCIAL HISTORY Smoking Status: Never smoker Alcohol Use: Rare Drug Use: None - RESPIRATORY Hx Respiratory Disorders: No - CARDIOVASCULAR Hx Cardio Disorders: Yes Comment:: murmur - NEURO Hx Neuro Disorders: No Comment:: chiari malformation - GI Hx GI Disorders: No - Hx Genitourinary Disorders: No - ENDOCRINE Hx Endocrine Disorders: No - MUSCULOSKELETAL Hx Musculoskeletal Disorders: No Comment:: hip displagia - PSYCH Hx Psych Problems: Yes Hx Anxiety: Yes Hx Depression: Yes - HEMATOLOGY/ONCOLOGY Hx Hematology/Oncology Disorders: Yes Hx Anemia: Yes Family Medical History Any Significant Family History?: Yes Hx Anxiety: Mother, Brother/Sister Hx Cancer: Grandparents Hx Diabetes: Mother, Brother/Sister, Grandparents Hx Heart Disease: Grandparents Hx HTN: Grandparents Hx Resp Disorders: Brother/Sister Hx Seizures: Grandparents Physical Exam - General General Appearance: Alert, Oriented x3, Cooperative, No acute distress - Head Head exam: Normal inspection - Eye Eye exam: Normal appearance, PERRL, EOMI Pupils: Normal accommodation - ENT ENT exam: Normal exam, Mucous membranes moist, Normal external ear exam, Normal orophraynx Ear exam: Normal external inspection. negative: External canal tenderness Nasal Exam: Normal inspection. negative: Discharge, Sinus tenderness Mouth exam: Normal external inspection, Tongue normal Teeth exam: Normal inspection. negative: Dental caries Throat exam: Normal inspection. negative: Tonsillar erythema, Tonsillar exudate - Neck Neck exam: Normal inspection, Full ROM. negative: Tenderness - Respiratory Respiratory exam: Normal lung sounds bilaterally. negative: Respiratory distress - Cardiovascular Cardiovascular Exam: Regular rate, Normal rhythm, Normal heart sounds - GI/Abdominal GI/Abdominal exam: Soft, Normal bowel sounds. negative: Tenderness - Rectal Rectal exam: Deferred - exam: Normal bimanual exam, Normal external exam, Normal speculum exam, Vaginal bleeding (mild) - Extremities Extremities exam: Normal inspection, Full ROM, Normal capillary refill. negative: Tenderness - Back Back exam: Reports: Normal inspection, Full ROM. Denies: Muscle spasm, Rash noted, Tenderness - Neurological Neurological exam: Alert, Normal gait, Oriented X3, Reflexes normal - Psychiatric Psychiatric exam: Normal affect, Normal mood - Skin Skin exam: Dry, Intact, Normal color, Warm Course Vital Signs 09/07/18 09/07/18 09/07/18 11:58 13:14 14:19 Temperature 97.7 F Pulse Rate 70 Pulse Rate [ 70 74 Pulse Ox Probe] Respiratory 20 18 18 Rate Blood Pressure 106/71 Blood Pressure 108/68 98/59 [Left Arm] Pulse Ox 100 98 100 Medical Decision Making - Lab Data Result diagrams: 09/07/18 13:00 Lab Results 09/07/18 09/07/18 Range/Units 13:00 13:00 WBC 6.8 (4.2-12.2) K/uL RBC 4.00 (3.80-5.40) M/uL Hgb 12.1 (11.6-16.0) gm/dl Hct 36.8 (35.0-47.0) % MCV 92.0 (81-97) fl MCH 30.3 (27-33) pg MCHC 32.9 (32-36) g/dl RDW 12.7 (11.5-14.5) % Plt Count 272 (130-400) K/uL MPV 11.1 H (7.4-10.4) fl Gran % 57.1 (47-80) % Lymphocytes % 30.9 (16-45) % Monocytes % 6.6 (0-9) % Eosinophils % 5.0 (0-6) % Basophils % 0.4 (0-6) % Absolute Neutrophils 3.87 Urine Color Yellow Urine Appearance Clear Urine pH 5.5 (5.0-8.0) Ur Specific [place] <= 1.005 (1.002-1.030) Urine Protein Negative (NEGATIVE) Urine Glucose (UA) Negative (NEGATIVE) Urine Ketones Negative (NEGATIVE) Urine Blood Moderate (NEGATIVE) Urine Nitrite Negative (NEGATIVE) Urine Bilirubin Negative (NEGATIVE) Urine Urobilinogen 0.2 (0.20 - 1.00) E.U./dL Ur Leukocyte Esterase Negative (NEGATIVE) Urine RBC 3 - 6 (NONE SEEN) Urine WBC None seen (0-2/hpf) Ur Epithelial Cells 0 - 2 (FEW) Urine HCG, Qual Negative (NEGATIVE) Disposition Disposition: Discharge Clinical Impression: Abnormal menses Heavy menstrual bleeding Qualifiers: Menorrahagia type: with regular cycle Qualified Code(s): N92.0 - Excessive and frequent menstruation with regular cycle Disposition: Home, Self-Care Condition: (1) Good Instructions: Dysfunctional Uterine Bleeding (ED) Additional Instructions: follow up with accountant controller. return sooner if worse. motrin for pain. Forms: Patient Portal Access, Return to Work/School Quality - Quality Measures Quality Measures: N/A - Blood Pressure Screening Does Patient Have Any of the Following: No Blood Pressure Classification: Normal BP Reading Systolic Measurement: 106 Diastolic Measurement: 71 Screening for High Blood Pressure: < Normal BP, F/U Not Required > [G8783]
== END 2018-09-07 15:07 | disposition home or self-care (01) ==
LOC: ER 11:43
DX: N92.0 Excessive and frequent menstruation with regular cycle (principal)
CPT/HCPCS: 81001; 81025; 85025; 99284

== ENCOUNTER 2019-03-14 18:59 | Emergency (ER) | payer MEDICAID ==
[2019-03-14] MEDS ORDERED: PREDNISONE 20 MG TAB PO ONE (19:09)
[2019-03-14] MEDS ORDERED: CLINDAMYCIN 150 MG CAP PO ONE (19:09)
--- NOTE | 2019-03-14 19:15 | Emergency Department Record ---
History of Present Illness - General Chief complaint: Rash Stated complaint: RASH Time Seen by Provider: 03/14/19 19:09 Source: Patient Mode of Arrival: Ambulatory Limitations: No limitations - History of Present Illness Initial comments: 28 yo female presents with sore throat and rash. She states she was strep positive two weeks ago. She treated with Amoxicillin. Since then she developed a itchy diffuse rash. No fever. No nausea, vomiting or diarrhea. No abdominal pain. No dysuria. She states she has had strep "26" times. No shortness of b reath. No wheezing. MD complaint: Rash, Other (Sore throat) Onset/Timin -: Week(s) Location: Generalized Consistency: Intermittent Improves with: None Worsens with: None Context: None Associated symptoms: Denies other symptoms Treatments Prior to Arrival: None - Related Data Home Medications Medication Instructions Recorded Confirmed Last Taken Bupropion HCl [Bupropion Xl] 1 tab PO DAILY 03/14/19 03/14/19 1 Day Ago ~03/13/19 Fluoxetine HCl [Prozac] 20 mg PO DAILY 03/14/19 03/14/19 1 Day Ago ~03/13/19 Previous Rx's Medication Instructions Recorded Clindamycin HCl 300 mg PO TID #21 capsule 03/14/19 Prednisone [Prednisone 20Mg] 20 mg PO BID #12 tab 03/14/19 Allergies Allergy/AdvReac Type Severity Reaction Status Date / Time Sulfa (Sulfonamide Allergy HIVES Verified 09/07/18 11:54 Antibiotics) Latex, Natural Rubber AdvReac RASH Verified 09/07/18 11:54 medroxyprogesterone acetate AdvReac ANEMIA Verified 09/07/18 11:54 [From Depo-Provera] control AdvReac don't work Uncoded 12/02/16 03:38 Travel Screening - Travel/Exposure Within Last 30 Days Have you traveled within the last 30 days?: No - Travel/Exposure Within Last Year Have you traveled outside the [place] in the last year?: No - Additonal Travel Details Have you been exposed to anyone with a communicable illness?: No - Travel Symptoms Symptom Screening: None Review of Systems Constitutional: Denies: Chills, Fever, Malaise, Weakness Eyes: Denies: Eye discharge, Eye pain, Photophobia, Vision change ENT: Reports: Congestion, Throat pain. Denies: Ear pain Respiratory: Denies: Cough, Dyspnea, Stridor, Wheezes Cardiovascular: Denies: Chest pain, Palpitations, Syncope Endocrine: Denies: Fatigue, Polydipsia, Polyuria Gastrointestinal: Denies: Abdominal pain, Diarrhea, Nausea, Vomiting Genitourinary: Denies: Dysuria, Urgency Musculoskeletal: Denies: Arthralgia, Back pain, Myalgia Skin: Denies: Bruising, Change in color, Rash Neurological: Denies: Headache Psychiatric: Denies: Anxiety Hematological/Lymphatic: Denies: Easy bleeding, Easy bruising Past Medical History - SOCIAL HISTORY Smoking Status: Never smoker Alcohol Use: None Drug Use: None - RESPIRATORY Hx Respiratory Disorders: No - CARDIOVASCULAR Hx Cardio Disorders: Yes Comment:: murmur - NEURO Hx Neuro Disorders: No Comment:: chiari malformation - GI Hx GI Disorders: No - Hx Genitourinary Disorders: No - ENDOCRINE Hx Endocrine Disorders: No - MUSCULOSKELETAL Hx Musculoskeletal Disorders: No Comment:: hip displagia - PSYCH Hx Psych Problems: Yes Hx Anxiety: Yes Hx Depression: Yes - HEMATOLOGY/ONCOLOGY Hx Hematology/Oncology Disorders: Yes Hx Anemia: Yes Family Medical History Any Significant Family History?: Yes Hx Anxiety: Mother, Brother/Sister Hx Cancer: Grandparents Hx Diabetes: Mother, Brother/Sister, Grandparents Hx Heart Disease: Grandparents Hx HTN: Grandparents Hx Resp Disorders: Brother/Sister Hx Seizures: Grandparents Physical Exam - General General Appearance: Alert, Oriented x3, Cooperative, No acute distress Limitations: No limitations - Head Head exam: Atraumatic, Normal inspection - Eye Eye exam: Normal appearance, PERRL. negative: Conjunctival injection, Scleral icterus - ENT ENT exam: Normal exam, Mucous membranes moist, Normal orophraynx, TM's normal bilaterally Ear exam: Normal external inspection Nasal Exam: Normal inspection Mouth exam: Normal external inspection Teeth exam: Normal inspection Throat exam: Tonsillar erythema, Tonsillomegaly. negative: Tonsillar exudate, R peritonsillar mass, L peritonsillar mass - Neck Neck exam: Lymphadenopathy (mild anterior cervical ). negative: Full ROM, Meningismus, Tenderness, Thyromegaly - Respiratory Respiratory exam: Normal lung sounds bilaterally. negative: Respiratory distress - Cardiovascular Cardiovascular Exam: Regular rate, Normal rhythm, Normal heart sounds - GI/Abdominal GI/Abdominal exam: Soft. negative: Tenderness - Rectal Rectal exam: Deferred - exam: Deferred - Extremities Extremities exam: negative: Normal inspection (rash) - Back Back exam: Denies: CVA tenderness (R), CVA tenderness (L) - Neurological Neurological exam: Alert, Oriented X3 - Psychiatric Psychiatric exam: Normal affect, Normal mood - Skin Skin exam: Rash Type of lesion: Rash Distribution of rash: Generalized Description of rash: Erythematous, Papular. negative: Discharge, Fluctuant, Indurated, Petechial, Purpuic, Tenderness, Urticarial, Vesicular Course Vital Signs 03/14/19 19:04 Temperature 98.0 F Pulse Rate 82 Respiratory 18 Rate Blood Pressure 107/70 Pulse Ox 99 - Reevaluation(s) Reevaluation #1: Vitals were reviewed No significant abnormalities The examination is still consistent with non complicated tonsillitis 03/14/19 19:15 Disposition Disposition: Discharge Clinical Impression: Tonsillitis, Rash Disposition: Home, Self-Care Condition: (1) Good Instructions: Acute Rash (ED), Tonsillitis (ED) Additional Instructions: Return to the ER for a recheck immediately if worse, any new concerns or questions Take the prescriptions provided as directed Follow up as scheduled with your ENT on 03/24/2019 Prescriptions: Clindamycin HCl 300 mg PO TID #21 capsule Prednisone [Prednisone 20Mg] 20 mg PO BID #12 tab Forms: Patient Portal Access Time of Disposition: 19:14 Quality - Quality Measures Quality Measures: N/A - Blood Pressure Screening Does Patient Have Any of the Following: No Blood Pressure Classification: Normal BP Reading Systolic Measurement: 107 Diastolic Measurement: 70 Screening for High Blood Pressure: < Normal BP, F/U Not Required > [G8783]
== END 2019-03-14 19:30 | disposition home or self-care (01) ==
LOC: ER 18:59
DX: J03.90 Acute tonsillitis, unspecified (principal); R21 Rash and other nonspecific skin eruption
CPT/HCPCS: 99283; J7512

== ENCOUNTER 2019-03-23 16:35 | Emergency (ER) | payer MEDICAID ==
--- NOTE | 2019-03-23 17:33 | Emergency Department Record ---
History of Present Illness - General Chief complaint: Rash Stated complaint: RASH,ARMS STOMACH BACK/TIRED Time Seen by Provider: 03/23/19 16:59 Source: Patient Mode of Arrival: Ambulatory Limitations: No limitations - History of Present Illness Initial comments: pt c/o a rash that she was seen for before and is no better. it does not itch or hurt. she recently finished a course of abx for strep throat. the rash is on her torso MD complaint: Rash Onset/Timin -: Month(s) Location: Generalized Severity: Mild Consistency: Constant Improves with: None Worsens with: None Context: Recent illness Associated symptoms: Denies other symptoms Treatments Prior to Arrival: None - Related Data Allergies Allergy/AdvReac Type Severity Reaction Status Date / Time Sulfa (Sulfonamide Allergy HIVES Verified 09/07/18 11:54 Antibiotics) Latex, Natural Rubber AdvReac RASH Verified 09/07/18 11:54 medroxyprogesterone acetate AdvReac ANEMIA Verified 09/07/18 11:54 [From Depo-Provera] control AdvReac don't work Uncoded 12/02/16 03:38 Travel Screening - Travel/Exposure Within Last 30 Days Have you traveled within the last 30 days?: No Review of Systems Reviewed: No additional complaints except as noted below Constitutional: Reports: As per HPI. Denies: Chills, Fever, Malaise, Night sweats, Weakness, Weight change Eyes: Reports: As per HPI. Denies: Eye discharge, Eye pain, Photophobia, Vision change ENT: Reports: As per HPI. Denies: Congestion, Dental pain, Ear pain, Epistaxis, Hearing loss, Throat pain Respiratory: Reports: As per HPI. Denies: Cough, Dyspnea, Hemoptysis, Stridor, Wheezes Cardiovascular: Reports: As per HPI. Denies: Arrhythmia, Chest pain, Dyspnea on exertion, Edema, Murmurs, Orthopnea, Palpitations, Paroxysmal nocturnal dyspnea, Rheumatic Fever, Syncope Endocrine: Reports: As per HPI. Denies: Fatigue, Heat or cold intolerance, Polydipsia, Polyuria Gastrointestinal: Reports: As per HPI. Denies: Abdominal pain, Constipation, Diarrhea, Hematemesis, Hematochezia, Melena, Nausea, Vomiting Genitourinary: Reports: As per HPI. Denies: Abnormal menses, Discharge, Dysp areunia, Dysuria, Frequency, Hematuria, Incontinence, Retention, Urgency Musculoskeletal: Reports: As per HPI. Denies: Arthralgia, Back pain, Gout, Joint swelling, Myalgia, Neck pain Skin: Reports: As per HPI. Denies: Bruising, Change in color, Change in hair/nails, Lesions, Pruritus, Rash Neurological: Reports: As per HPI. Denies: Abnormal gait, Confusion, Headache, Numbness, Paresthesias, Seizure, Tingling, Tremors, Vertigo, Weakness Psychiatric: Reports: As per HPI. Denies: Anxiety, Auditory hallucinations, Depression, Homicidal thoughts, Suicidal thoughts, Visual hallucinations Hematological/Lymphatic: Reports: As per HPI. Denies: Anemia, Blood Clots, Easy bleeding, Easy bruising, Swollen glands Past Medical History - SOCIAL HISTORY Smoking Status: Never smoker - RESPIRATORY Hx Respiratory Disorders: No - CARDIOVASCULAR Hx Cardio Disorders: Yes Comment:: murmur - NEURO Hx Neuro Disorders: No Comment:: chiari malformation - GI Hx GI Disorders: No - Hx Genitourinary Disorders: No - ENDOCRINE Hx Endocrine Disorders: No - MUSCULOSKELETAL Hx Musculoskeletal Disorders: No Comment:: hip displagia - PSYCH Hx Psych Problems: Yes Hx Anxiety: Yes Hx Depression: Yes - HEMATOLOGY/ONCOLOGY Hx Hematology/Oncology Disorders: Yes Hx Anemia: Yes Family Medical History Any Significant Family History?: Yes Hx Anxiety: Mother, Brother/Sister Hx Cancer: Grandparents Hx Diabetes: Mother, Brother/Sister, Grandparents Hx Heart Disease: Grandparents Hx HTN: Grandparents Hx Resp Disorders: Brother/Sister Hx Seizures: Grandparents Physical Exam - General General Appearance: Alert, Oriented x3, Cooperative, No acute distress - Head Head exam: Normal inspection - Eye Eye exam: Normal appearance, PERRL, EOMI Pupils: Normal accommodation - ENT ENT exam: Normal exam, Mucous membranes moist, Normal external ear exam, Normal orophraynx Ear exam: Normal external inspection. negative: External canal tenderness Nasal Exam: Normal inspection. negative: Discharge, Sinus tenderness Mouth exam: Normal external inspection, Tongue normal Teeth exam: Normal inspection. negative: Dental caries Throat exam: Normal inspection. negative: Tonsillar erythema, Tonsillar exudate - Neck Neck exam: Normal inspection, Full ROM. negative: Tenderness - Respiratory Respiratory exam: Normal lung sounds bilaterally. negative: Respiratory distress - Cardiovascular Cardiovascular Exam: Regular rate, Normal rhythm, Normal heart sounds - GI/Abdominal GI/Abdominal exam: Soft, Normal bowel sounds. negative: Tenderness - Rectal Rectal exam: Deferred - exam: Deferred - Extremities Extremities exam: Normal inspection, Full ROM, Normal capillary refill. negative: Tenderness - Back Back exam: Reports: Normal inspection, Full ROM. Denies: Muscle spasm, Rash noted, Tenderness - Neurological Neurological exam: Alert, CN II-XII intact, Normal gait, Oriented X3 - Psychiatric Psychiatric exam: Normal affect, Normal mood - Skin Skin exam: Dry, Intact, Normal color, Rash, Warm Type of lesion: Rash Distribution of rash: Abdomen, Back, Chest Description of rash: Other (umbilicated) Course Vital Signs 03/23/19 16:46 Temperature 98.5 F Pulse Rate 94 H Respiratory 18 Rate Blood Pressure 104/71 Pulse Ox 97 Disposition Disposition: Discharge Clinical Impression: Molluscum contagiosum Disposition: Home, Self-Care Condition: (1) Good Instructions: Molluscum Contagiosum (ED) Additional Instructions: follow up with family doctor and community services coordinator. return sooner if worse Quality - Quality Measures Quality Measures: N/A - Blood Pressure Screening Does Patient Have Any of the Following: No Blood Pressure Classification: Normal BP Reading Systolic Measurement: 104 Diastolic Measurement: 71 Screening for High Blood Pressure: < Normal BP, F/U Not Required > [G8783]
== END 2019-03-23 18:58 | disposition home or self-care (01) ==
LOC: ER 16:35
DX: B08.1 Molluscum contagiosum (principal)
CPT/HCPCS: 99282

== ENCOUNTER 2019-03-26 09:54 | Emergency (ER) | payer MEDICAID ==
[2019-03-26 10:48] LABS: INFLUENZA A NEGATIVE (NEGATIVE); INFLUENZA B NEGATIVE (NEGATIVE)
--- NOTE | 2019-03-26 11:04 | Emergency Department Record ---
History of Present Illness - General Chief Complaint: Cough Stated Complaint: COUGH Time Seen by Provider: 03/26/19 09:58 Source: Patient Mode of Arrival: Ambulatory Limitations: No limitations - History of Present Illness Initial Comments: The patient is here due to a one day hx of cough, fever, nasal congestion and body aches. She has been recently exposed to Influenza and she states she did get a flu shot this year. MD Complaint: Cough, Fever, Nasal congestion, Sore throat Onset/Timin -: Days(s) - Related Data Previous Rx's Medication Instructions Recorded Oseltamivir Phosphate [Tamiflu] 75 mg PO BID #10 capsule 03/26/19 Allergies Allergy/AdvReac Type Severity Reaction Status Date / Time Sulfa (Sulfonamide Allergy HIVES Verified 09/07/18 11:54 Antibiotics) Latex, Natural Rubber AdvReac RASH Verified 09/07/18 11:54 medroxyprogesterone acetate AdvReac ANEMIA Verified 09/07/18 11:54 [From Depo-Provera] control AdvReac don't work Uncoded 12/02/16 03:38 Travel Screening - Travel/Exposure Within Last 30 Days Have you traveled within the last 30 days?: No - Travel/Exposure Within Last Year Have you traveled outside the [place] in the last year?: No - Additonal Travel Details Have you been exposed to anyone with a communicable illness?: No - Travel Symptoms Symptom Screening: None Review of Systems Constitutional: Reports: Chills, Fever, Malaise Eyes: Denies: Eye discharge ENT: Reports: Congestion Respiratory: Reports: Cough. Denies: Dyspnea Past Medical History - SOCIAL HISTORY Smoking Status: Never smoker Alcohol Use: Rare Drug Use: None - RESPIRATORY Hx Respiratory Disorders: No - CARDIOVASCULAR Hx Cardio Disorders: Yes Comment:: murmur - NEURO Hx Neuro Disorders: No Comment:: chiari malformation - GI Hx GI Disorders: No - Hx Genitourinary Disorders: No - ENDOCRINE Hx Endocrine Disorders: No - MUSCULOSKELETAL Hx Musculoskeletal Disorders: No Comment:: hip displagia - PSYCH Hx Psych Problems: Yes Hx Anxiety: Yes Hx Depression: Yes - HEMATOLOGY/ONCOLOGY Hx Hematology/Oncology Disorders: Yes Hx Anemia: Yes Family Medical History Any Significant Family History?: No Hx Anxiety: Mother, Brother/Sister Hx Cancer: Grandparents Hx Diabetes: Mother, Brother/Sister, Grandparents Hx Heart Disease: Grandparents Hx HTN: Grandparents Hx Resp Disorders: Brother/Sister Hx Seizures: Grandparents Physical Exam - General General Appearance: Alert, Oriented x3, Cooperative, No acute distress - Head Head exam: Atraumatic, Normocephalic, Normal inspection - Eye Eye exam: Normal appearance, PERRL, EOMI - ENT Throat exam: Tonsillar erythema (mild. ). negative: Normal inspection, Tonsillomegaly, Tonsillar exudate - Neck Neck exam: Normal inspection, Full ROM. negative: Tenderness - Respiratory Respiratory exam: Normal lung sounds bilaterally. negative: Respiratory distress, Rhonchi, Stridor, Wheezes - Cardiovascular Cardiovascular Exam: Regular rate, Normal rhythm, Normal heart sounds - GI/Abdominal GI/Abdominal exam: Soft, Normal bowel sounds. negative: Tenderness - Extremities Extremities exam: Normal inspection, Full ROM, Normal capillary refill. negative: Tenderness Course Vital Signs 03/26/19 10:12 Temperature 99.7 F H Pulse Rate 114 H Respiratory 18 Rate Blood Pressure 108/72 Pulse Ox 97 - Reevaluation(s) Reevaluation #1: I did discuss the neg Flu swab with the patient but due to her son having it I strongly believe she does also and think the test was a false Neg. We will place the patient on Tamiflu and she is to use Tylenol and Motrin for fever. She is to see her PCP next week for recheck if not better. 03/26/19 11:26 Medical Decision Making - Data Complexity MDM Data: Labs Ordered and/or Reviewed (Flu: Neg.) - Lab Data Lab Results 03/26/19 Range/Units 10:20 Influenza Type A Ag Negative (NEGATIVE) Influenza Type B Ag Negative (NEGATIVE) Disposition Disposition: Discharge Clinical Impression: URI (upper respiratory infection) Qualifiers: URI type: unspecified URI Qualified Code(s): J06.9 - Acute upper respiratory infection, unspecified Disposition: Home, Self-Care Condition: (2) Stable Instructions: Cold Symptoms (ED) Additional Instructions: Please use Tylenol and Motrin for fever and take the Tamiflu. Please see your doctor early next week if not better. Return to the ER for any worsening issues. Prescriptions: Oseltamivir Phosphate [Tamiflu] 75 mg PO BID #10 capsule Forms: Patient Portal Access Time of Disposition: 11:28 Quality - Quality Measures Quality Measures: N/A - Blood Pressure Screening View Details: Yes Does Patient Have Any of the Following: No Blood Pressure Classification: Normal BP Reading Systolic Measurement: 108 Diastolic Measurement: 72 Screening for High Blood Pressure: < Normal BP, F/U Not Required > [[id number]]
== END 2019-03-26 11:59 | disposition home or self-care (01) ==
LOC: ER 09:54
DX: J06.9 Acute upper respiratory infection, unspecified (principal); R05 Cough
CPT/HCPCS: 87400; 99283